=== PATIENT | male | born 1980 | race American Indian/Alaskan Native ===

== ENCOUNTER → 2019-10-02 | Outpatient (CLI) | payer BC | END | disposition home or self-care (01) | LOC: SLR 11:00 | PROVIDERS: ATTEND Otolaryngology | DX: G47.33 Obstructive sleep apnea (adult) (pediatric) (principal); R06.83 Snoring; R40.0 Somnolence; G47.30 Sleep apnea, unspecified | CPT/HCPCS: G0399 ==